=== PATIENT | male | born 1995 | race Caucasian/White ===

== ENCOUNTER 2021-03-21 12:54 | Inpatient (IN) | payer BC ==
[~2021-03-21] VITALS: Ht 182.9 cm; Wt 84.0 kg
[2021-03-21] MEDS ORDERED: LIDOCAINE 5% TRANSDERMAL PATCH TD ONE (13:45)
[2021-03-21] MEDS ORDERED: NAPROXEN 250 MG TABLET PO ONE (13:45)
[2021-03-21 15:22] LABS: AMPHET/METH SCREEN,URINE NEGATIVE (NEGATIVE); BARBITURATE SCREEN, URINE NEGATIVE (NEGATIVE); BENZODIAZEPINES SCREEN,URINE NEGATIVE (NEGATIVE); CANNABINOID SCREEN,URINE POSITIVE (NEGATIVE); COCAINE SCREEN,URINE NEGATIVE (NEGATIVE); METHADONE SCREEN, URINE NEGATIVE (NEGATIVE); OPIATE SCREEN,URINE NEGATIVE (NEGATIVE)
[2021-03-21 15:23] LABS: PHENCYCLIDINE SCREEN,URINE NEGATIVE (NEGATIVE)
[2021-03-21 15:28] LABS: BASOPHILS % (AUTO) 0.5 % (0.0-2.0); EOSINOPHILS % (AUTO) 3.8 % (1.0-6.0); HEMATOCRIT 44.3 % (41-53); LYMPHOCYTES % (AUTO) 35.2 % (22.0-44.0); MEAN CORPUSCULAR HEMOGLOBIN 30.5 pg (26.0-34.0); MEAN CORPUSCULAR HGB CONC 33.9 G/dL (31.0-37.0); MEAN CORPUSCULAR VOLUME 90 fL (80-100); MONOCYTES # (AUTO) 0.6 K/uL (0.1-1.0); MONOCYTES % (AUTO) 11.1 % (2.0-9.0); NEUTROPHILS # (AUTO) 2.8 K/uL (1.8-7.7); NEUTROPHILS % (AUTO) 49.4 % (40.0-70.0); PLATELET COUNT (AUTO) 182 K/uL (150-450); RED BLOOD CELL COUNT(AUTO) 4.93 MIL/uL (4.50-5.90); RED CELL DISTRIBUTION WIDTH 13.6 % (11.5-14.5)
[2021-03-21 15:36] LABS: ANION GAP 5 mmol/L (8-16); CALCIUM, TOTAL 8.8 mg/dL (8.8-10.5); CARBON DIOXIDE 30 mmol/L (22-29); CHLORIDE 105 mmol/L (98-107); CREATININE 1.02 mg/dL (0.60-1.30); GLOMERULAR FILTR. RATE CALC > 60 mL/min (>60); GLUCOSE,RANDOM 123 mg/dL (70-110); POTASSIUM 4.4 mmol/L (3.5-5.1); SODIUM SERUM 140 mmol/L (136-145); UREA NITROGEN, BLOOD 14 mg/dL (7-18)
[2021-03-21 15:43] LABS: ALANINE AMINOTRANSFERASE 27 U/L (12-78); ALBUMIN 4.2 g/dL (3.4-5.0); ALKALINE PHOSPHATASE 78 U/L (46-116); ASPARTATE AMINOTRANSFERASE 21 U/L (15-37); BILIRUBIN,TOTAL 1.2 mg/dL (0.1-1.0)
[2021-03-21 16:48] LABS: COVID AG,FIA SOURCE NASOPHARYNGEAL
[2021-03-21] MEDS ORDERED: HALOPERIDOL 5 MG TABLET PO PRN (19:15)
[2021-03-21 19:54] VITALS: BP 119/63
[2021-03-21] MEDS: ZOLPIDEM TARTRATE 10 MG TABLET PO PRN (20:11)
[2021-03-21] MEDS ORDERED: NICOTINE POLACRILEX 2 MG LOZENGE PO PRN (20:45)
[2021-03-22 00:05] VITALS: BP 134/72
[2021-03-22] MEDS ORDERED: IBUPROFEN 400 MG TABLET ONE (06:35)
[2021-03-22 06:39] VITALS: BP 132/74
[2021-03-22] MEDS: LORazepam 2 MG TABLET PO PRN ×2 (06:44→19:27)
[2021-03-22 08:08] VITALS: BP 106/54
[2021-03-22] MEDS ORDERED: IBUPROFEN 400 MG TABLET PO PRN ×2 (08:30→13:00)
[2021-03-22] MEDS ORDERED: IBUPROFEN 400 MG TABLET PO SCH (12:00)
[2021-03-22] MEDS ORDERED: GuaiFENesin/D-METHORPHAN [SUGAR-FREE] 200-20MG/10 ML SYRUP UDCUP PO PRN (13:00)
[2021-03-22] MEDS ORDERED: ONDANSETRON HCL 4 MG TABLET PO PRN (13:00)
[2021-03-22] MEDS ORDERED: LOPERAMIDE HCL 2 MG CAPSULE PO PRN (13:00)
[2021-03-22] MEDS ORDERED: ACETAMINOPHEN 325 MG TABLET PO PRN (13:00)
[2021-03-22] MEDS ORDERED: NICOTINE 14 MG/24 HOUR PATCH TD PRN (13:00)
[2021-03-22] MEDS ORDERED: MAGNESIUM HYDROXIDE SUSPENSION 30 ML UDCUP PO PRN (13:00)
[2021-03-22] MEDS ORDERED: MAG HYDROX/AL HYDROX/SIMETH ES 30 ML SUSPENSION UDCUP PO PRN (13:00)
[2021-03-22] MEDS ORDERED: ALBUTEROL SULFATE HFA 90 MCG/PUFF 8 GM INHALER IH PRN (13:00)
[2021-03-22] MEDS ORDERED: DOCUSATE SODIUM 100 MG CAPSULE PO PRN (13:00)
[2021-03-22] MEDS ORDERED: CloNIDine HCL 0.1 MG TABLET PO PRN (13:00)
[2021-03-22] MEDS ORDERED: PETROLATUM,WHITE 28 GM JELLY TP PRN (13:00)
[2021-03-22 16:15] VITALS: BP 125/62
[2021-03-22] MEDS ORDERED: LORazepam 2 MG/ML VIAL IM ONE (18:45)
[2021-03-22] MEDS ORDERED: HALOPERIDOL LACTATE 5 MG/ML VIAL IM ONE (18:45)
[2021-03-22] MEDS ORDERED: DiphenhydrAMINE HCL 50 MG/ML VIAL IM ONE (18:45)
[2021-03-22] MEDS ORDERED: QUEtiapine FUMARATE 100 MG TABLET PO ONE (20:00)
[2021-03-23] MEDS: ZOLPIDEM TARTRATE 10 MG TABLET PO PRN (00:34)
[2021-03-23 01:08] VITALS: BP 128/81
[2021-03-23 08:27] VITALS: BP 132/89
== END 2021-03-23 08:45 | disposition home or self-care (01) | DRG 885 ==
LOC: EMS 13:13 → B2S 16:43
PROVIDERS: ADMIT Psychiatry & Neurology Child & Adolescent Psychiatry; ATTEND Psychiatry & Neurology Child & Adolescent Psychiatry
DX: F29 Unspecified psychosis not due to a substance or known physiological condition (principal); E80.6 Other disorders of bilirubin metabolism; Z20.822 Contact with and (suspected) exposure to COVID-19; M54.5 Low back pain; F10.10 Alcohol abuse, uncomplicated
CPT/HCPCS: 80053; 85025; 87081; 87426; 99285; A9575; G0480